=== PATIENT | male | born 1960 ===

== ENCOUNTER 2023-05-07 10:06 | Outpatient (CLI) | payer OTHER, SELFPAY ==
--- NOTE | ~2023-05-07 | MR_ITS ---
MRI of the lumbar spine Clinical History: Back pain Technique: Axial T2-weighted images, and sagittal T1-weighted, T2-weighted, and T2 fat-sat images wer e acquired. Findings: There is no acute fracture or subluxation lumbar spine. Possible mild chronic compression d eformity versus irregular degenerative change at the inferior endplate of L1. No suspicious bone radha ow signal abnormality seen. At L1-L2, there is moderate to advanced degenerative disc narrowing with minimal disc bulge and mild facet arthropathy. No central canal stenosis or neural foraminal narrowing. At L2-L3, there is minimal disc bulge and moderate facet arthropathy. No central canal stenosis or ne ural foraminal narrowing. At L3-L4, there is mild disc bulge and moderate facet arthropathy. There is no rosalva central canal st enosis. Neural foramina are preserved. At L4-L5, there is no disc bulge or herniation. There is moderate facet arthropathy. No central canal stenosis or neural foraminal narrowing. At L5-S1, there is moderate to advanced degenerative disc narrowing. There is mild disc bulge and mod erate facet arthropathy. No central canal stenosis. There is moderate left neural foraminal narrowing , and severe right neural foraminal narrowing. Paravertebral soft tissues are unremarkable. Impression: Moderate degenerative spondylosis at L5-S1. Mild degenerative change in the remainder of the lumbar spine. Reviewed, dictated and finalized at [facility]. Impression: Moderate degenerative spondylosis at L5-S1. Mild degenerative change in the remainder of the lumbar spine.
== END 2023-05-07 10:07 ==
DX: M47.897 Other spondylosis, lumbosacral region (principal)
CPT/HCPCS: 72148